=== PATIENT | male | born 1995 | race African-American/Black ===

== ENCOUNTER 2019-07-02 19:46 | Emergency (ER) | payer SELFPAY ==
[~2019-07-02] VITALS: Ht 175.3 cm; Wt 80.4 kg
[2019-07-02 20:32] VITALS: BP 139/69
== END 2019-07-02 22:04 | disposition left against medical advice (07) ==
LOC: ER 19:54
DX: J02.9 Acute pharyngitis, unspecified (principal); R05 Cough; R09.81 Nasal congestion; Z53.21 Procedure and treatment not carried out due to patient leaving prior to being seen by health care provider
CPT/HCPCS: 71046

== ENCOUNTER 2019-07-04 10:59 | Emergency (ER) | payer SELFPAY ==
[~2019-07-04] VITALS: Ht 175.3 cm; Wt 80.3 kg
[2019-07-04 13:04] LABS: Basophils # (auto) 0 uL; Eosinophils # (auto) 0 uL; Eosinophils % (auto) 0.1 % (0.0-7.0); Lymphocytes # (auto) 1.1 uL; Neutrophils # (auto) 3.1 uL
[2019-07-04 13:06] LABS: Basophils % (auto) 0.4 % (0.0-2.0); Hematocrit 48.9 % (41.0-53.0); Hemoglobin 16.6 g/dL (13.5-17.5); Lymphocytes % (auto) 22.6 % (10.0-50.0); Mean Corpuscular Hemoglobin 26.5 pg (28.0-32.0); Monocytes # (auto) 0.8 uL; Monocytes % (auto) 15.4 % (0.0-12.0); Neutrophils % (auto) 61.5 % (37.0-80.0); Nucleated Red Blood Cells % 0.2 %; Platelet Count (auto) 120 10^3/uL (140-450); Red Blood Cells 6.27 10^6/uL (4.5-5.90); Red Cell Distribution Width 14.4 % (11.8-14.3)
[2019-07-04] MEDS ORDERED: methylPREDNISolone SOD SUCC 125 MG/2 ML VL IV ONE (13:15)
[2019-07-04] MEDS ORDERED: IPRATROPIUM BROM 0.5 MG/2.5ML INH SOL HHN ONE (13:15)
[2019-07-04] MEDS ORDERED: ALBUTEROL SULF 2.5 MG/0.5ML(0.5%) NEB SOLN HHN ONE (13:15)
[2019-07-04 13:19] LABS: Albumin 3.9 g/dL (3.4-5.0); Anion Gap 8 (5-15); Blood Urea Nitrogen 12 mg/dL (7-18); Calcium 8.6 mg/dL (8.5-10.1); Carbon Dioxide 25 mmol/L (21-32); Chloride 103 mmol/L (98-107); Glucose 110 mg/dL (74-106); Potassium 3.2 mmol/L (3.5-5.1); Sodium 136 mmol/L (136-145)
[2019-07-04 13:25] LABS: Alanine Aminotransferase 78 U/L (16-61); Alkaline Phosphatase 51 U/L (45-117); Aspartate Aminotransferase 58 U/L (15-37); BUN/Creatinine Ratio 8.9; Bilirubin, Total 0.3 mg/dL (0.2-1.0); GFR African American 84 mL/min; GFR Non-African American 70 mL/min
[2019-07-04 13:33] LABS: INR 1.09 (0.9-1.15); Partial Thromboplastin Time 33.4 sec (23.64-32.05)
[2019-07-04] MEDS ORDERED: SODIUM CHLORIDE 0.9% 1,000 ML IV ONE (14:00)
[2019-07-04] MEDS ORDERED: IOHEXOL 350 MG/ML 100ML IJ ONE (14:48)
[2019-07-04 15:50] LABS: Urine Bacteria NONE SEEN /hpf (None Seen); Urine Blood Negative /uL (Negative); Urine Mucus FEW (None Seen); Urine WBC 1 /hpf (0 - 3)
[2019-07-04 16:22] LABS: Urine Specific Gravity > 1.050 (1.001-1.035)
[2019-07-04] MEDS ORDERED: POTASSIUM CHL 20 Meq TABLET PO ONE (16:30)
[2019-07-04] MEDS ORDERED: cefTRIAXone 1GM/50ML D5W 50 ML IV ONE (16:30)
[2019-07-04 16:57] LABS: Amphetamine Screen, Urine NEGATIVE (NEGATIVE); Barbiturate Scree,Urine NEGATIVE (NEGATIVE); Benzodiazephine Screen, Urine NEGATIVE (NEGATIVE); Cannabinoid Screen, Urine POSITIVE (NEGATIVE); Cocaine Screen, Urine NEGATIVE (NEGATIVE); Opiate Scree,Urine NEGATIVE (NEGATIVE); Phencyclidine Screen, Urine NEGATIVE (NEGATIVE)
[2019-07-04 17:26] VITALS: BP 120/71
== END 2019-07-04 18:24 | disposition home or self-care (01) ==
LOC: ER 11:04
DX: J20.9 Acute bronchitis, unspecified (principal); J45.909 Unspecified asthma, uncomplicated; E87.6 Hypokalemia; D69.6 Thrombocytopenia, unspecified; R94.5 Abnormal results of liver function studies; F12.10 Cannabis abuse, uncomplicated; F17.210 Nicotine dependence, cigarettes, uncomplicated
CPT/HCPCS: 36415; 71046; 71275; 80053; 80307; 81001; 83605; 83735; 83880; 84484; 85025; 85379; 85610; 85730; 87040; 93005; 94640; 96365; 96375; 99284; J0696; J2930; J7611; J7644; Q9967